=== PATIENT | female | born 2000 | race Caucasian/White ===

== ENCOUNTER 2023-02-03 10:30 | Outpatient (CLI) | payer SELFPAY ==
--- NOTE | 2023-02-03 11:45 | US_ITS ---
WS: [id number] ULTRASOUND RIGHT BREAST HISTORY: LUMP OF R BREAST COMPARISON: None available. TECHNIQUE: 2-D and Doppler. Palpable mass in the RIGHT breast at 2:00, 2 cm from the nipple is identified. There is a solid hypoe choic mass with smooth margins. Mass measures 1.2 x 0.9 x 1.5 cm. There is mild increased vascularity . This is most consistent with a benign fibroadenoma. IMPRESSION: US/US breast RT limited* [id number] BI-RADS: 4-Suspicious Finding-Biopsy Should Be Considered FOLLOW-UP: Biopsy Recommended Biopsy recommended of the solid mass in the RIGHT breast at 2:00. 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 Recommend core biopsy to confirm diagnosis.
== END 2023-02-03 10:31 | disposition home or self-care (01) ==
PROVIDERS: Family Provider Pediatrics; PCP Pediatrics; Visit Provider Nurse Practitioner Family
DX: N63.12 Unspecified lump in the right breast, upper inner quadrant (principal)
CPT/HCPCS: 76642

== ENCOUNTER → 2023-07-04 09:23 | Outpatient (BNVA) | payer MEDICAID, SELFPAY | PROVIDERS: Family Provider Pediatrics; PCP Pediatrics; Visit Provider Nurse Practitioner Obstetrics & Gynecology | DX: N91.1 Secondary amenorrhea (principal); Z68.33 Body mass index [BMI] 33.0-33.9, adult | CPT/HCPCS: 80053; 80061; 83036; 83525; 84146; 84403; 84439; 84443; 84550; 84703; 85025 ==

== ENCOUNTER 2024-12-20 15:01 | Outpatient (CLI) | payer OTHER, SELFPAY ==
--- NOTE | 2024-12-20 15:15 | USR_ITS ---
PROCEDURE INFORMATION: Exam: US Pelvis Transabdominal, Complete, and US Pelvis Transvaginal, and US Duplex Artery and Vein, Ovaries, Complete, Non-obstetric Exam date and time: 12/20/2024 3:21 PM Age: 24 years old Clinical indication: Other: Polycystic ovarian syndrome TECHNIQUE: Imaging protocol: Real-time complete transabdominal and transvaginal pelvic ultrasound (non-obstetric) with image documentation. Transvaginal imaging was used for better evaluation of the endometrium, adnexa, and/or cervix. Real-time duplex ultrasound scan of the arterial and venous flow of the ovaries with B-mode, color Doppler flow and spectral waveform analysis. Duplex exam was performed to evaluate for torsion and other vascular conditions. COMPARISON: No relevant prior studies available. FINDINGS: Uterus: Uterus is normal. Endometrial stripe is normal at 5 mm. Few minute nabothian cysts. Right ovary/adnexa: Ovary is normal. No mass. Normal arterial and venous waveforms on duplex. Few small cystic foci measure up to 1.2 cm. Ovary has a 5 cc volume. Left ovary/adnexa: Ovary is normal. No mass. Normal arterial and venous waveforms on duplex. Few small cystic foci measure up to 1.0 cm. Ovary has a 9 cc volume. Intraperitoneal space: No intraperitoneal fluid. Urinary bladder: Normal. US/US pelv w/transvag [id number] IMPRESSION: 1. No acute findings. 2. No adnexal mass or evidence of torsion. 3. Both ovaries are normal in size with a few small bilateral ovarian foci. The appearance is nonspecific.
== END 2024-12-20 15:02 | disposition home or self-care (01) ==
LOC: RAD 15:07
PROVIDERS: Visit Provider Obstetrics & Gynecology
DX: E28.2 Polycystic ovarian syndrome (principal)
CPT/HCPCS: 76830; 76856